=== PATIENT | female | born 1970 | race Caucasian/White ===

== ENCOUNTER 2016-05-14 07:51 | Emergency (ER) | payer BC ==
[2016-05-14 09:45] LABS: HEMOGLOBIN 11.1 gm/dl (12.3-15.3); RED BLOOD COUNT 4.28 M/UL (4.00-5.10); WHITE BLOOD COUNT 6.5 K/UL (4.5-11.0)
[2016-05-14 10:01] LABS: BUN/CREATININE RATIO 15 (0-10)
== END 2016-05-14 13:50 | disposition home or self-care (01) ==
LOC: ER1 07:51
PROVIDERS: Physician Assistant
DX: R20.2 Paresthesia of skin (principal); R50.9 Fever, unspecified; E11.9 Type 2 diabetes mellitus without complications; K21.9 Gastro-esophageal reflux disease without esophagitis; E03.9 Hypothyroidism, unspecified; M85.80 Other specified disorders of bone density and structure, unspecified site; Z90.49 Acquired absence of other specified parts of digestive tract
CPT/HCPCS: 36415; 70551; 71010; 80053; 82550; 82553; 83874; 84443; 84484; 84703; 85025; 86140; 93005; 96374; 99284; J1885

== ENCOUNTER → 2021-02-26 | Outpatient (CLI) | payer OTHER | LOC: RAD 14:11 | DX: M79.641 Pain in right hand (principal) | CPT/HCPCS: 73130 ==